=== PATIENT | female | born 1975 | race Asian ===

== ENCOUNTER 2016-11-09 22:11 | Emergency (ER) | payer MEDICARE, OTHER | END 2016-11-09 23:26 | disposition home or self-care (01) | LOC: ER 22:11 | DX: J02.9 Acute pharyngitis, unspecified (principal); R05 Cough; J45.909 Unspecified asthma, uncomplicated; F32.9 Major depressive disorder, single episode, unspecified; Z87.891 Personal history of nicotine dependence; Z98.51 Tubal ligation status; Z88.1 Allergy status to other antibiotic agents; Z88.6 Allergy status to analgesic agent; Z88.8 Allergy status to other drugs, medicaments and biological substances ==